=== PATIENT | male | born 1965 | race Caucasian/White ===

== ENCOUNTER 2017-10-18 16:29 | Emergency (ER) | payer SELFPAY ==
[~2017-10-18] VITALS: Ht 172.7 cm; Wt 91.0 kg
[2017-10-18] MEDS ORDERED: ACETAMINOPHEN 325MG TABLET PO ONE (17:00)
[2017-10-18] MEDS ORDERED: TETRACAINE 0.5% OPHTH DROPS 4ML OP ONE (19:00)
[2017-10-18] MEDS ORDERED: FLUORESCEIN SODIUM 1MG/STRIP OP ONE (19:00)
[2017-10-18] MEDS ORDERED: HYDROCODONE/ACETAMINOPHEN 5/325MG TABLET PO ONE (20:30)
[2017-10-18] MEDS ORDERED: TETANUS AND DIPHTHERIA TOX/PF 0.5ML SYR (ADULT) IM ONE (20:30)
[2017-10-18] MEDS ORDERED: GENTAMICIN 0.3% OPHTH DROPS 5ML LEFTEYE ONE (20:30)
[2017-10-18] MEDS ORDERED: TETANUS, DIPHTHERIA, PERTUSSIS VAC/PF 0.5ML (>7YR OLD) IM ONE (20:45)
[2017-10-18 21:00] VITALS: BP 138/88
== END 2017-10-18 21:37 | disposition home or self-care (01) ==
LOC: ER 18:14
DX: T15.02XA Foreign body in cornea, left eye, initial encounter (principal); X58.XXXA Exposure to other specified factors, initial encounter; Y93.89 Activity, other specified; Y99.8 Other external cause status; Y92.89 Other specified places as the place of occurrence of the external cause
CPT/HCPCS: 65222; 90471; 90715; 99284; J7040; 90714